=== PATIENT | male | born 1950 | race Caucasian/White ===

== ENCOUNTER 2018-01-16 21:41 | Inpatient (IN) | payer MEDICARE, OTHER ==
[~2018-01-16] VITALS: Ht 172.7 cm; Wt 69.4 kg
--- NOTE | 2018-01-17 11:52 | NUR ---
GPS RN ADMITTING NOTE: PT 67 Y/O MALE ADMITTED FOR GD PER HOLD PT TRY TO SUFFOCATE SOMEONE , PT UNABLE TO RECALL WHY, UNABLE TO PROVIDE FURTHER DETAILED. UPON 1:1 ASSESSMENT PT UNABLE TO GIVE ANY INFORMATION REGARDING HX, PT POOR HISTORIAN, DISORGANIZED, A/OX1, CONFUSED PT FOUND ON THE STREET, PT REFUSED MRSA REFUSED SKIN ASSESSMENT, UNABLE TO SIGN PAPERS. DR SNOW NOTIFIED WITH STANDING ORDERS . PT DISHEVELED AND UNKEPT. RESTING IN BED AT THIS TIME.
[2018-01-17] MEDS ORDERED: ALPR1TAB7 PO (11:59)
[2018-01-17] MEDS ORDERED: CLON0.1T PO (11:59)
[2018-01-17] MEDS ORDERED: LEVE1000 PO (11:59)
[2018-01-17] MEDS ORDERED: CARV3.122 PO (11:59)
[2018-01-17] MEDS ORDERED: FURO40TA5 PO (11:59)
[2018-01-17] MEDS ORDERED: PANT40TA2 PO (11:59)
[2018-01-17] MEDS ORDERED: LISI-607 PO (11:59)
[2018-01-17] MEDS ORDERED: METH5TAB2 PO (11:59)
[2018-01-17] MEDS ORDERED: LORAZEPAM 0.5 MG TABLET PO PRN (12:00)
[2018-01-17] MEDS ORDERED: MAGNESIUM HYDROXIDE 30 ML UDC PO PRN (12:00)
[2018-01-17] MEDS ORDERED: MAG HYDROX/AL HYDROX/SIMETH 30 ML UDC PO PRN (12:00)
[2018-01-17 12:21] VITALS: BP 101/58
--- NOTE | 2018-01-17 15:45 | NUR ---
GPS RN NOTE: NOTIFIED DR GRAY OF NEW ADMISSION AND TO RECONCILED PT HOME MEDICATIONS, WILL CONTINUE MONITORING
[2018-01-17 16:00] VITALS: BP 136/79
[2018-01-17] MEDS ORDERED: ALPRAZOLAM 1 MG TABLET PO PRN (16:00)
[2018-01-17] MEDS: CARVEDILOL 3.125 MG TABLET PO SCH (21:30)
[2018-01-17] MEDS: LEVETIRACETAM (250 MG) 250 MG TABLET PO SCH (21:31)
[2018-01-17 21:46] VITALS: BP 123/78
[2018-01-18] MEDS: ACETAMINOPHEN 325 MG TABLET PO PRN (03:41)
[2018-01-18 07:16] LABS: ALBUMIN 3.2 g/dL (3.4-5.0); BILIRUBIN,TOTAL 0.5 mg/dL (0.2-1.0); CALCIUM, SERUM 8.9 mg/dL (8.5-10.1); CREATININE 1.2 mg/dL (0.6-1.3); POTASSIUM 3.5 mmol/L (3.5-5.1); TOTAL PROTEIN, SERUM 6.1 g/dL (6.4-8.2)
[2018-01-18] MEDS: PANTOPRAZOLE 40 MG TABLET.DR PO SCH (07:28)
[2018-01-18 08:11] VITALS: BP 142/84
[2018-01-18] MEDS: CLONIDINE HCL 0.1 MG TABLET PO SCH (08:28)
[2018-01-18] MEDS: LISINOPRIL (5MG) 5 MG TABLET PO SCH (08:28)
[2018-01-18] MEDS: FUROSEMIDE 40 MG TABLET PO SCH (08:28)
[2018-01-18] MEDS: CARVEDILOL 3.125 MG TABLET PO SCH ×2 (08:28→21:03)
[2018-01-18] MEDS: LEVETIRACETAM (250 MG) 250 MG TABLET PO SCH ×2 (09:51→21:04)
--- NOTE | 2018-01-18 11:00 | NUR ---
[id number]: NOTIFIED DR. CARSON THAT PT HAS METHADONE 140 MG PO DOSAGE HAND WRITTEN AND PT'S LAB RESULTS ON 01/18/18: CO2= 33, BUN= 36, TOTAL PROTEIN= 6.1, ALBUMIN= 3.2, HDL CHOLESTEROL= 67. DR. CARSON TO FOLLOW UP WITH PHARMACY. CALLED PHARMACY AND THEY DON'T HAVE A LICENSE TO DISPENSE METHADONE FOR ADDICTION.
[2018-01-18] MEDS ORDERED: hydrALAZINE HCL 25 MG TABLET PO PRN (13:30)
[2018-01-18] MEDS: LORAZEPAM 1 MG TABLET PO PRN (14:34)
--- NOTE | 2018-01-18 14:34 | NUR ---
[id number]: GAVE ATIVAN 1 MG PO DUE TO SEVERE ANXIETY UPON PT REQUEST AND WILL CONTINUE TO MONITOR FOR EFFECTIVENESS OF MEDICATION
[2018-01-18 16:10] VITALS: BP 104/70
[2018-01-18 19:47] VITALS: BP 120/57
[2018-01-18] MEDS ORDERED: LORAZEPAM 0.5 MG TABLET PO PRN (20:00)
[2018-01-18] MEDS: QUETIAPINE FUMARATE 25 MG TABLET PO SCH (21:01)
[2018-01-18] MEDS: ZOLPIDEM TARTRATE 5 MG TABLET PO PRN (22:44)
[2018-01-19] MEDS: LORAZEPAM 1 MG TABLET PO PRN ×2 (00:34→14:21)
--- NOTE | 2018-01-19 01:30 | NUR ---
SW was contacted by [employer] [facility] social work professor with [facility] [phone] who confirmed pt was evicted from room and board he was living in with girlfriend and needs placement.
[2018-01-19] MEDS: PANTOPRAZOLE 40 MG TABLET.DR PO SCH (07:39)
[2018-01-19 08:00] VITALS: BP 150/99
[2018-01-19] MEDS: FUROSEMIDE 40 MG TABLET PO SCH (08:58)
[2018-01-19] MEDS: SERTRALINE HCL 25 MG TABLET PO SCH (08:59)
[2018-01-19] MEDS: LISINOPRIL (5MG) 5 MG TABLET PO SCH (08:59)
[2018-01-19] MEDS: CLONIDINE HCL 0.1 MG TABLET PO SCH (08:59)
[2018-01-19] MEDS: LEVETIRACETAM (250 MG) 250 MG TABLET PO SCH ×2 (09:00→20:54)
[2018-01-19] MEDS: CARVEDILOL 3.125 MG TABLET PO SCH ×2 (09:00→20:54)
[2018-01-19 16:00] VITALS: BP 150/92
[2018-01-19] MEDS: ACETAMINOPHEN 325 MG TABLET PO PRN (19:18)
--- NOTE | 2018-01-19 19:20 | NUR ---
PATIENT STATED," I DON'T FEEL WELL, MY HEAD HURTS." TYLENOL 650 MG TAB PO GIVEN.
[2018-01-19 20:32] VITALS: BP 123/60
[2018-01-19] MEDS: ZOLPIDEM TARTRATE 5 MG TABLET PO PRN (20:55)
--- NOTE | 2018-01-19 20:57 | NUR ---
AMBIEN 5 MG TAB 1 PO GIVEN FOR SLEEP PER REQUEST.
[2018-01-19] MEDS: QUETIAPINE FUMARATE 25 MG TABLET PO SCH (21:00)
[2018-01-20] MEDS: LORAZEPAM 1 MG TABLET PO PRN ×2 (01:24→09:53)
--- NOTE | 2018-01-20 01:25 | NUR ---
PATIENT AGITATED, UNABLE TO SLEEP, ATIVAN 1 MG TAB 1 PO GIVEN.
--- NOTE | 2018-01-20 06:51 | NUR ---
NEED URINE FOR ANALYSIS TODAY, 01/20/18
[2018-01-20 08:00] VITALS: BP 150/98
[2018-01-20] MEDS: CLONIDINE HCL 0.1 MG TABLET PO SCH (08:57)
[2018-01-20] MEDS: LISINOPRIL (5MG) 5 MG TABLET PO SCH (08:58)
[2018-01-20] MEDS: PANTOPRAZOLE 40 MG TABLET.DR PO SCH (08:58)
[2018-01-20] MEDS: SERTRALINE HCL 25 MG TABLET PO SCH (08:58)
[2018-01-20] MEDS: FUROSEMIDE 40 MG TABLET PO SCH (08:58)
[2018-01-20] MEDS: CARVEDILOL 3.125 MG TABLET PO SCH ×2 (08:59→21:00)
--- NOTE | 2018-01-20 09:12 | NUR ---
ROSIBEL faxed referral to [facility] [phone].
[2018-01-20] MEDS: LEVETIRACETAM (250 MG) 250 MG TABLET PO SCH ×2 (09:53→21:00)
--- NOTE | 2018-01-20 12:23 | NUR ---
INITIAL DISCHARGE PLAN: Pt is homeless and wants SNF placement. ROSIBEL spoke with [employer] media senior associate with [facility] [phone] who confirmed pt was evicted and needs placement. ROSIBEL will help form a safe and proper discharge in collaboration with .
--- NOTE | 2018-01-20 12:26 | NUR ---
ROSIBEL contacted [facility] in [place] [phone] and spoke with Celia to inform her that pt was in hospital she stated that she faxed over pts daily methadone treatment dosage and check in sheet. ROSIBEL confirmed with nursing staff who are gathering additional information to continue treatment.
--- NOTE | 2018-01-20 13:26 | NUR ---
WOUND CARE CONSULT: PT PRESENTS WITH INTACT SKIN, CONTINENT AND INDEPENDENT WITH BED MOBILITY. CURRENT AYESHA SCORE IS 19. RECOMMEND MOISTURIZER FOR DRY SKIN. DISCUSSED WITH NURSING STAFF. WILL SEE PRN. Addendum: 01/20/18 at 1328 by CANDY BELCHER WNDNU Amended: Links added.
[2018-01-20] MEDS: ACETAMINOPHEN 325 MG TABLET PO PRN (15:38)
[2018-01-20 16:00] VITALS: BP 123/86
[2018-01-20] MEDS ORDERED: METHADONE HCL 10 MG TABLET PO SCH (18:00)
--- NOTE | 2018-01-20 19:29 | NUR ---
GPS RN NOTE: RECEIVED PATIENT AWAKE IN BED, NO S/S OR COMPLAINTS OF PAIN AT THIS TIME NOR S/S OF DISTRESS. PATIENT BREATHING IS UNLABORED AND EQUAL RISE AND FALL OF CHEST. PATIENT IS ALERT AND ORIENTED X 2, NEEDS CONSTANT REORIENTATION. DENIES SUICIDE IDEATIONS OR HOMICIDAL IDEATIONS. PATIENT HAS NO NEEDS AT THIS TIME. EDUCATED ON USE OF CALL SUBRAMANIAN. SIDE RAILS UP X 2 FOR SAFETY, BED IS LOCKED AND LOW WILL CONTINUE TO MONITOR FOR SAFETY.
[2018-01-20 19:57] VITALS: BP 120/48
[2018-01-20] MEDS: ZOLPIDEM TARTRATE 5 MG TABLET PO PRN (22:07)
--- NOTE | 2018-01-20 22:07 | NUR ---
GPS RN NOTE, PATIENT HAS A COMPLAINT OF NOT BEING ABLE TO SLEEP AND IS REQUESTING AMBIEN AT THIS TIME. PATIENT VITAL SIGNS ARE STABLE. GAVE AMBIEN 5 MG PO HS ORDERED. WILL REASSESS FOR INSOMNIA AND I WILL CONTINUE TO MONITOR THIS PATIENT.
[2018-01-20] MEDS: QUETIAPINE FUMARATE 25 MG TABLET PO SCH (22:42)
[2018-01-21] MEDS: ACETAMINOPHEN 325 MG TABLET PO PRN ×2 (02:09→21:32)
--- NOTE | 2018-01-21 02:10 | NUR ---
GPS RN NOTE: PATIENT HAS COMPLAINT OF HEADACHE AT SCALE OF 3/10 AND REQUESTS TYLENOL AT THIS TIME. PATIENT VITALS STABLE. GAVE TYLENOL 650 MG PO Q 6 HOURS PRN ORDERED. WILL REASSESS PAIN AND CONTINUE TO MONITOR.
[2018-01-21] MEDS: LORAZEPAM 1 MG TABLET PO PRN (04:32)
--- NOTE | 2018-01-21 04:32 | NUR ---
GPS RN NOTE, PATIENT HAS A COMPLAINT OF FEELING ANXIOUS AND IS REQUESTING ATIVAN AT THIS TIME. PATIENT VITAL SIGNS ARE STABLE. GAVE ATIVAN 1 MG PO Q8HR PRN ORDERED. WILL REASSESS FOR ANXIETY AND I WILL CONTINUE TO MONITOR THIS PATIENT.
[2018-01-21 07:58] VITALS: BP 150/89
[2018-01-21] MEDS: METHADONE HCL 10 MG TABLET PO SCH (08:11)
[2018-01-21] MEDS: CLONIDINE HCL 0.1 MG TABLET PO SCH (08:12)
[2018-01-21] MEDS: LEVETIRACETAM (250 MG) 250 MG TABLET PO SCH ×2 (08:12→21:32)
[2018-01-21] MEDS: PANTOPRAZOLE 40 MG TABLET.DR PO SCH (08:13)
[2018-01-21] MEDS: CARVEDILOL 3.125 MG TABLET PO SCH ×2 (08:13→21:00)
[2018-01-21] MEDS: FUROSEMIDE 40 MG TABLET PO SCH (08:13)
[2018-01-21] MEDS: LISINOPRIL (5MG) 5 MG TABLET PO SCH (08:13)
[2018-01-21] MEDS: SERTRALINE HCL 25 MG TABLET PO SCH (08:14)
[2018-01-21 11:25] LABS: APPEARANCE,URINE CLEAR (CLEAR); BILIRUBIN,URINE NEGATIVE (NEGATIVE); BLOOD, URINE NEGATIVE Ery/uL (NEGATIVE); COLOR,URINE YELLOW (YELLOW); KETONES,URINE NEGATIVE (NEGATIVE); LEUKOCYTE ESTERASE ,URINE NEGATIVE (NEGATIVE); NITRITE, URINE NEGATIVE (NEGATIVE); PH,URINE 7.5 (5.0-8.0); PROTEIN,URINE TRACE mg/dl (NEGATIVE); UGLUCOSE NEGATIVE (NEGATIVE)
[2018-01-21 11:48] LABS: BACTERIA,URINE None seen /HPF (None Seen); RBC,URINE NONE SEEN /HPF (0-2); SQUAMOUS EPITHELIAL CELL,UR Few /HPF (None Seen); WBC,URINE 0-2 /HPF (0-3)
[2018-01-21] MEDS ORDERED: hydrOXYzine PAMOATE 25 MG CAPSULE PO PRN (12:00)
[2018-01-21] MEDS ORDERED: diphenhydrAMINE HCL 50 MG CAPSULE PO PRN (12:00)
[2018-01-21 16:10] VITALS: BP 100/57
--- NOTE | 2018-01-21 19:35 | NUR ---
GPS RN NOTE: RECEIVED PATIENT AWAKE AND SITTING UP IN BED, NO S/S OR COMPLAINTS OF PAIN AT THIS TIME. PATIENT DISPLAYING NO S/S OF APPARENT DISTRESS AT THIS TIME. PATIENT BREATHING IS UNLABORED WITH EQUAL RISE AND FALL OF THE CHEST. PATIENT ALERT AND ORIENTED X 3. PATIENT IS MED COMPLIANT, COOPERATIVE, NEEDY, NEEDS REORIENTATION. PATIENT DENIES SUICIDE IDEATIONS AND HOMICIDAL IDEATIONS AT THIS TIME. PATIENT ENCOURAGED TO NOT ISOLATE HE FEELING BETTER AND WANTS TO WATCH TV. WALKED WITH PATIENT TO TV ROOM AND HE SAT TO WATCH TV. PATIENT EDUCATED ON THE USE OF THE CALL SUBRAMANIAN AND ASK FOR ASSISTANCE IF NEEDED FOR AMBULATION. PATIENT BED SIDE RAILS UP X2 FOR SAFETY, BED IS LOCKED AND LOW WILL CONTINUE TO MONITOR AND MAINTAIN AND MAINTAIN SAFETY.
[2018-01-21 20:00] VITALS: BP 97/65
[2018-01-21] MEDS: QUETIAPINE FUMARATE 25 MG TABLET PO SCH (21:32)
--- NOTE | 2018-01-21 21:45 | NUR ---
GPS RN NOTE: PATIENT BLOOD PRESSURE CHECKED TWICE AND BLOOD PRESSURE MEDICATION WITHHELD AT THIS TIME. PATIENT IS SITTING IN THE TV ROOM DRINKING JUICE AND TALKING WITH OTHER PATIENTS WITHOUT SIGNS OF DISTRESS. EDUCATED TO HYDRATE AND REPORT ANY DIZZINESS, FAINTNESS, OR WEAKNESS. PATIENT VERBALIZED UNDERSTANDING AND S ALERT AND ORIENTED X 3 WITHOUT COMPLAINT.
--- NOTE | 2018-01-21 22:00 | NUR ---
GPS RN NOTE: PATIENT REMAINS IN DAY ROOM TALKING WITH OTHER PATIENT WITHOUT COMPLAINT. TYLENOL WAS GIVEN FOR HEADACHE WHICH PATIENT STATES IS RELIEVED AT THIS TIME.
--- NOTE | 2018-01-22 05:31 | NUR ---
ATTEMPTED TO PERFORM EKG ON PATIENT, PATIENT REFUSED TREATMENT ALBINO SULTANA AT BEDSIDE AND AWARE
[2018-01-22 08:00] VITALS: BP 115/60
[2018-01-22] MEDS: METHADONE HCL 10 MG TABLET PO SCH (08:14)
[2018-01-22] MEDS: PANTOPRAZOLE 40 MG TABLET.DR PO SCH (08:14)
[2018-01-22] MEDS: LEVETIRACETAM (250 MG) 250 MG TABLET PO SCH ×2 (08:15→21:06)
[2018-01-22] MEDS: SERTRALINE HCL 25 MG TABLET PO SCH (08:15)
[2018-01-22] MEDS: CLONIDINE HCL 0.1 MG TABLET PO SCH (08:16)
[2018-01-22] MEDS: FUROSEMIDE 40 MG TABLET PO SCH (08:16)
[2018-01-22] MEDS: CARVEDILOL 3.125 MG TABLET PO SCH ×2 (08:16→21:00)
[2018-01-22] MEDS: LISINOPRIL (5MG) 5 MG TABLET PO SCH (08:17)
[2018-01-22] MEDS: ACETAMINOPHEN 325 MG TABLET PO PRN ×2 (14:22→23:41)
[2018-01-22 16:16] VITALS: BP 109/51
[2018-01-22 20:00] VITALS: BP 108/52
[2018-01-22] MEDS: QUETIAPINE FUMARATE 25 MG TABLET PO SCH (21:05)
[2018-01-23] MEDS: ACETAMINOPHEN 325 MG TABLET PO PRN ×2 (07:36→21:20)
[2018-01-23] MEDS: PANTOPRAZOLE 40 MG TABLET.DR PO SCH (07:36)
--- NOTE | 2018-01-23 07:40 | NUR ---
GPS/RN-NOTES PATIENT REQUESTING TYLENOL FOR HEADACHE. TYLENOL 650MG P.O GIVEN PRN ORDER. WILL CONT. MONITORING.
[2018-01-23 08:00] VITALS: BP 126/76
[2018-01-23] MEDS: LISINOPRIL (5MG) 5 MG TABLET PO SCH (09:27)
[2018-01-23] MEDS: LEVETIRACETAM (250 MG) 250 MG TABLET PO SCH ×2 (09:27→21:19)
[2018-01-23] MEDS: SERTRALINE HCL 25 MG TABLET PO SCH (09:27)
[2018-01-23] MEDS: FUROSEMIDE 40 MG TABLET PO SCH (09:27)
[2018-01-23] MEDS: METHADONE HCL 10 MG TABLET PO SCH (09:27)
[2018-01-23] MEDS: CARVEDILOL 3.125 MG TABLET PO SCH ×2 (09:28→21:00)
[2018-01-23] MEDS: CLONIDINE HCL 0.1 MG TABLET PO SCH (09:37)
[2018-01-23 09:46] VITALS: BP 122/85
[2018-01-23 16:00] VITALS: BP 90/64
[2018-01-23 20:00] VITALS: BP 104/60
[2018-01-23] MEDS: QUETIAPINE FUMARATE 25 MG TABLET PO SCH (23:04)
[2018-01-24 07:53] VITALS: BP 107/65
[2018-01-24] MEDS: PANTOPRAZOLE 40 MG TABLET.DR PO SCH (08:33)
[2018-01-24] MEDS: METHADONE HCL 10 MG TABLET PO SCH (08:39)
[2018-01-24] MEDS: SERTRALINE HCL 25 MG TABLET PO SCH (08:40)
[2018-01-24] MEDS: LEVETIRACETAM (250 MG) 250 MG TABLET PO SCH ×2 (08:40→21:26)
[2018-01-24] MEDS: CARVEDILOL 3.125 MG TABLET PO SCH ×2 (08:41→21:26)
[2018-01-24] MEDS: FUROSEMIDE 40 MG TABLET PO SCH (08:41)
[2018-01-24] MEDS: CLONIDINE HCL 0.1 MG TABLET PO SCH (08:42)
[2018-01-24] MEDS: LISINOPRIL (5MG) 5 MG TABLET PO SCH (08:42)
[2018-01-24 15:51] VITALS: BP 110/67
[2018-01-24 19:45] VITALS: BP 114/75
[2018-01-24] MEDS: QUETIAPINE FUMARATE 25 MG TABLET PO SCH (21:26)
[2018-01-25] MEDS: ACETAMINOPHEN 325 MG TABLET PO PRN ×2 (06:51→21:04)
[2018-01-25 07:47] VITALS: BP 129/82
[2018-01-25] MEDS: LEVETIRACETAM (250 MG) 250 MG TABLET PO SCH ×2 (08:08→21:01)
[2018-01-25] MEDS: SERTRALINE HCL 25 MG TABLET PO SCH (08:08)
[2018-01-25] MEDS: CARVEDILOL 3.125 MG TABLET PO SCH ×2 (08:09→21:47)
[2018-01-25] MEDS: FUROSEMIDE 40 MG TABLET PO SCH (08:10)
[2018-01-25] MEDS: LISINOPRIL (5MG) 5 MG TABLET PO SCH (08:10)
[2018-01-25] MEDS: PANTOPRAZOLE 40 MG TABLET.DR PO SCH (08:10)
[2018-01-25] MEDS: CLONIDINE HCL 0.1 MG TABLET PO SCH (08:10)
[2018-01-25] MEDS: METHADONE HCL 10 MG TABLET PO SCH (08:38)
[2018-01-25 15:54] VITALS: BP 100/61
[2018-01-25 19:49] VITALS: BP 120/76
[2018-01-25] MEDS: QUETIAPINE FUMARATE 25 MG TABLET PO SCH (21:04)
[2018-01-26] MEDS: ACETAMINOPHEN 325 MG TABLET PO PRN ×2 (06:56→20:10)
[2018-01-26 08:00] VITALS: BP 110/59
[2018-01-26] MEDS: METHADONE HCL 10 MG TABLET PO SCH (08:08)
[2018-01-26] MEDS: PANTOPRAZOLE 40 MG TABLET.DR PO SCH (08:09)
[2018-01-26] MEDS: LEVETIRACETAM (250 MG) 250 MG TABLET PO SCH ×2 (08:09→20:18)
[2018-01-26] MEDS: FUROSEMIDE 40 MG TABLET PO SCH (08:09)
[2018-01-26] MEDS: CLONIDINE HCL 0.1 MG TABLET PO SCH (08:09)
[2018-01-26] MEDS: SERTRALINE HCL 25 MG TABLET PO SCH (08:09)
[2018-01-26] MEDS: LISINOPRIL (5MG) 5 MG TABLET PO SCH (08:10)
[2018-01-26] MEDS: CARVEDILOL 3.125 MG TABLET PO SCH ×2 (08:10→20:17)
[2018-01-26 16:00] VITALS: BP 116/51
--- NOTE | 2018-01-26 16:27 | NUR ---
GPS/RN HELD BP MEDS- CARVEDILOL 3 MG, LISINOPRIL 5 MG, CLONODINE 0.1 MG DUE TO DECREASED BP. 110/59. WILL CONTINUE TO MONITOR. Addendum: 01/26/18 at 1631 by SHAWN HERRERA RN HELD 899 BP MEDS
[2018-01-26 20:10] VITALS: BP 148/76
--- NOTE | 2018-01-26 20:10 | NUR ---
C/O HEADACHE, TYLENOL 650 MG TAB PO GIVEN.
[2018-01-26] MEDS: QUETIAPINE FUMARATE 25 MG TABLET PO SCH (21:42)
--- NOTE | 2018-01-26 21:57 | NUR ---
C/O INABILITY SLEEP FROM LAST NIGHT, BENADRYL 50 MG CAP 1 PO GIVEN.
[2018-01-27] MEDS: ACETAMINOPHEN 325 MG TABLET PO PRN (07:49)
[2018-01-27] MEDS: PANTOPRAZOLE 40 MG TABLET.DR PO SCH (07:49)
[2018-01-27 08:00] VITALS: BP 134/90
[2018-01-27] MEDS: METHADONE HCL 10 MG TABLET PO SCH (08:18)
[2018-01-27] MEDS: SERTRALINE HCL 25 MG TABLET PO SCH (08:18)
[2018-01-27] MEDS: LEVETIRACETAM (250 MG) 250 MG TABLET PO SCH (08:18)
[2018-01-27] MEDS: LISINOPRIL (5MG) 5 MG TABLET PO SCH (08:19)
[2018-01-27] MEDS: CLONIDINE HCL 0.1 MG TABLET PO SCH (08:19)
[2018-01-27 08:20] VITALS: BP 134/90
[2018-01-27] MEDS: FUROSEMIDE 40 MG TABLET PO SCH (08:20)
[2018-01-27] MEDS: CARVEDILOL 3.125 MG TABLET PO SCH (08:20)
--- NOTE | 2018-01-27 12:46 | NUR ---
NURSING NOTE PT C/O HEADACHE PAIN 03/02, REQUESTING TYLENOL, ADMINISTERED TYLENOL 650 MG PO, WILL CONTINUE TO MONITOR.
--- NOTE | 2018-01-27 12:47 | NUR ---
NURSING NOTE PT DISCHARGED TODAY AT 1240. PT LEFT UNIT VIA GURNEY ACCOMPANIED BY 2 YARD LABOR SUPERVISOR. PT WAS DISCHARGED TO [facility]) VIA AMBULANCE. REPORT WAS GIVEN TO JERRICA POSADA @[phone]. PT IS CALM, COOPERATIVE, A&OX3, DENIES SI/HI/AVH AT THE TIME OF DISCHARGE. SKIN INTACT PHOTOS TAKEN AND PLACED IN THE CHART. PT IS MED COMPLIANT, VS STABLE. ALL BELONGINGS AND VALUABLES WERE RETURNED TO PT AND PT SIGNED ALL PAPERWORK. REPORT WAS GIVEN TO YARD LABOR SUPERVISOR WELL. DISCHARGE ORDERS WERE OBTAINED FROM DR. MONTANEZ AND DR. HINTON.
--- NOTE | 2018-01-27 14:16 | NUR ---
DISCHARGE NOTE: Pt discharged to [facility] ([facility]) [address] [facility] [address] via [facility] ambulance trip #[id number] at 12:00pm. Pts APS employment case manager [employer] [phone] has been notified and agree with discharge plan. Pt denied suicidal/homicidal ideations and denied visual/auditory hallucinations. Pt agreed to discharge plan and pts mood appeared to be anxious and affect was congruent with mood. Patient was referred to [facility]: [facility] [place] [address] and will report for an Intake on Thursday February 01, 2018 before 5:00pm. Additional resources included [facility] [id number] [place] [address] and [facility] [address] [place] [address] . Pt will be under the medical care of [employer]: Dr. Reji Gordon [id number] [phone] Phone 1: and Psychiatrist: Dr. Alfonzo Cortés [id number] [place] [address] . The multidisciplinary exitcare form was done, printed, signed, and given to the patient.
--- NOTE | 2018-02-15 12:48 | NUR ---
15 DAY POST DISCHARGE SUBSTANCE ABUSE FOLLOW-UP: pt excluded due to discharge to SNF.
== END 2018-01-27 12:40 | DRG 885 ==
LOC: GPS 01-17 11:15
PROVIDERS: ADMIT Psychiatry & Neurology Psychiatry; ATTEND Psychiatry & Neurology Psychiatry
DX: F39 Unspecified mood [affective] disorder (principal); F11.20 Opioid dependence, uncomplicated; G40.909 Epilepsy, unspecified, not intractable, without status epilepticus; F32.9 Major depressive disorder, single episode, unspecified; F41.9 Anxiety disorder, unspecified; I10 Essential (primary) hypertension; G89.29 Other chronic pain; F29 Unspecified psychosis not due to a substance or known physiological condition; Z79.899 Other long term (current) drug therapy; Z91.14 Patient's other noncompliance with medication regimen; I25.10 Atherosclerotic heart disease of native coronary artery without angina pectoris; L60.3 Nail dystrophy; L85.3 Xerosis cutis
CPT/HCPCS: 36415; 80053-TC; 80061-TC; 81000-TC; 84443-TC; 87081-TC; Q0163